=== PATIENT | male | born 1950 | race Caucasian/White ===

== ENCOUNTER 2021-07-04 17:30 | Inpatient (IN) | payer MEDICARE, MEDICAID ==
[~2021-07-04] VITALS: Ht 160 cm; Wt 62.1 kg
[2021-07-04] MEDS ORDERED: SODIUM CHLORIDE 0.9% 1000ML BAG (SEPSIS BOLUS) IV ONE (18:15)
[2021-07-04 18:41] LABS: MEAN CORPUSCULAR HEMOGLOBIN 30.2 pg (28.0-32.0); MEAN CORPUSCULAR VOLUME 94.1 fL (80.0-94.0); PLATELET 335 x1000/uL (130-400); RED BLOOD CELL COUNT 2.21 mill/uL (4.7-6.1); RED CELL DISTRIBUTION WIDTH 18.9 % (11.6-14.6)
[2021-07-04 18:44] LABS: HEMATOCRIT. 20.8 % (42.0-52.0); HEMOGLOBIN. 6.7 g/dL (14.0-18.0)
[2021-07-04 18:46] LABS: CHLORIDE 97 mEq/L (98-107)
[2021-07-04] MEDS ORDERED: VANCOMYCIN 1 G PREMIX 200 ML IV SCH (19:00)
[2021-07-04] MEDS ORDERED: PIPERACILLIN/TAZ 3.375G PREMIX 50 ML IV ONE (19:00)
[2021-07-04 19:11] LABS: INR 1.2; PARTIAL THROMBOPLASTIN TIME 23.2 sec (23.4-31.0); PROTHROMBIN TIME 12.4 sec (9.6-11.0)
[2021-07-04 19:48] LABS: PLATELET ESTIMATE NORMAL
[2021-07-04] MEDS ORDERED: DIPHENHYDRAMINE 50MG/ML VIAL IV PRN (23:30)
[2021-07-04] MEDS ORDERED: CLONIDINE 0.1MG TABLET GT PRN (23:30)
[2021-07-04] MEDS ORDERED: ACETAMINOPHEN 650MG SUPP PR PRN (23:30)
[2021-07-04] MEDS ORDERED: ONDANSETRON HCL 4MG/2ML INJ IV PRN (23:30)
[2021-07-05] VITALS (7 sets, daily range): BP systolic 102–123; BP diastolic 18–55
[2021-07-05] MEDS ORDERED: SODIUM CHLORIDE 0.9% 1,000 ML IV SCH
[2021-07-05 06:25] LABS: HEMATOCRIT. 26.8 % (42.0-52.0); HEMOGLOBIN. 8.8 g/dL (14.0-18.0); MEAN CORPUSCULAR HEMOGLOBIN 29.6 pg (28.0-32.0); MEAN CORPUSCULAR VOLUME 90.3 fL (80.0-94.0); MEAN PLATELET VOLUME 8.1 fl (7.4-10.4); PLATELET 298 x1000/uL (130-400); RED BLOOD CELL COUNT 2.96 mill/uL (4.7-6.1); RED CELL DISTRIBUTION WIDTH 18.1 % (11.6-14.6)
[2021-07-05] MEDS: PANTOPRAZOLE SODIUM 40 MG/VIAL IV SCH (08:28)
[2021-07-05] MEDS: ALBUTEROL (0.083%) 2.5MG/3ML NEB HHN SCH ×2 (12:54→21:52)
[2021-07-05 13:03] LABS: PLATELET ESTIMATE NORMAL
[2021-07-05] MEDS ORDERED: DEXTROSE 50% WATER 50ML SYRINGE IV PRN (15:00)
[2021-07-05 16:20] LABS: HEPATITIS B SURFACE ANTIGEN NEGATIVE
[2021-07-05] MEDS: BLOOD SUGAR DIAGNOSTIC STRIP TEST SCH ×2 (17:29→21:00)
[2021-07-05] MEDS: INSULIN LISPRO 100 UNITS/ML SUBCUT SCH ×2 (17:52→21:00)
[2021-07-05] MEDS ORDERED: SODIUM HYPOCHLORITE 0.125% 473ML SOLUTION TOP SCH (18:30)
[2021-07-06] VITALS: BP 91/45
[2021-07-06] MEDS: ALBUTEROL (0.083%) 2.5MG/3ML NEB HHN SCH ×3 (02:04→13:40)
[2021-07-06 04:00] VITALS: BP 132/52
[2021-07-06] MEDS: INSULIN LISPRO 100 UNITS/ML SUBCUT SCH ×3 (06:28→18:14)
[2021-07-06] MEDS: BLOOD SUGAR DIAGNOSTIC STRIP TEST SCH ×2 (06:29→12:10)
[2021-07-06 08:00] VITALS: BP 121/48
[2021-07-06] MEDS: PANTOPRAZOLE SODIUM 40 MG/VIAL IV SCH (10:30)
[2021-07-06] MEDS: ACETAMINOPHEN 650MG/20.3ML UDC GT PRN ×2 (10:31→18:13)
[2021-07-06 12:00] VITALS: BP 101/44
[2021-07-06 16:00] VITALS: BP 106/46
[2021-07-06 16:11] VITALS: BP 101/44
== END 2021-07-06 18:30 | disposition home or self-care (01) | DRG 70 ==
LOC: ER 17:30 → MICUSO 19:57 → EDBEDREQTM 20:00 → EDBEDREQ 20:00 → EDBEDREQSVC 20:00 → 7WST 22:49 → 8WST 07-05 05:05
PROVIDERS: ADMIT Internal Medicine; ATTEND Internal Medicine
PROC: 30233N1 Transfusion of Nonautologous Red Blood Cells into Peripheral Vein, Percutaneous Approach (ICD-10-PCS; principal; 2021-07-04)
PROC: 5A1D70Z Performance of Urinary Filtration, Intermittent, Less than 6 Hours Per Day (ICD-10-PCS; 2021-07-05)
DX: G93.41 Metabolic encephalopathy (principal); J18.9 Pneumonia, unspecified organism; N18.6 End stage renal disease; J90 Pleural effusion, not elsewhere classified; I12.0 Hypertensive chronic kidney disease with stage 5 chronic kidney disease or end stage renal disease; R13.10 Dysphagia, unspecified; D64.9 Anemia, unspecified; I25.10 Atherosclerotic heart disease of native coronary artery without angina pectoris; E87.6 Hypokalemia; L85.3 Xerosis cutis; E11.22 Type 2 diabetes mellitus with diabetic chronic kidney disease; E11.51 Type 2 diabetes mellitus with diabetic peripheral angiopathy without gangrene; Z20.822 Contact with and (suspected) exposure to COVID-19; S80.811A Abrasion, right lower leg, initial encounter; X58.XXXA Exposure to other specified factors, initial encounter; Y93.89 Activity, other specified; Y92.89 Other specified places as the place of occurrence of the external cause; Z95.5 Presence of coronary angioplasty implant and graft; Z99.2 Dependence on renal dialysis; Y99.8 Other external cause status; Z93.1 Gastrostomy status
CPT/HCPCS: 36415; 71045; 80048; 80053; 82140; 82962; 83036; 83605; 83880; 84145; 84484; 85025; 86705; 86709; 86803; 86850; 86900; 86920; 87340; 87426; 93005; 94640; 99285; C9113; J1815; J2543; J3370; J7030; P9016; U0003; U0005; A4315